=== PATIENT | male | born 1940 | race Caucasian/White ===

== ENCOUNTER → 2017-08-30 | Emergency (ER) | payer OTHER ==
[~2017-08-30] VITALS: Ht 175.3 cm; Wt 81.2 kg
== END | disposition left against medical advice (07) ==
LOC: ER 04:11
DX: S30.1XXA Contusion of abdominal wall, initial encounter (principal); S00.83XA Contusion of other part of head, initial encounter; Y08.89XA Assault by other specified means, initial encounter; Y93.89 Activity, other specified; Y92.488 Other paved roadways as the place of occurrence of the external cause; Y99.8 Other external cause status; F20.89 Other schizophrenia

== ENCOUNTER 2019-10-06 15:56 | Emergency (ER) | payer OTHER ==
[~2019-10-06] VITALS: Ht 172.7 cm; Wt 82.1 kg
[2019-10-06] MEDS ORDERED: SULFAMETHOXAZOLE-TMP (16:27)
== END 2019-10-06 18:23 | disposition home or self-care (01) ==
LOC: ER 15:56
DX: S20.222A Contusion of left back wall of thorax, initial encounter (principal); Y04.2XXA Assault by strike against or bumped into by another person, initial encounter; Y93.89 Activity, other specified; Y92.512 Supermarket, store or market as the place of occurrence of the external cause; Y99.8 Other external cause status

== ENCOUNTER 2019-10-12 16:14 | Emergency (ER) | payer OTHER ==
[~2019-10-12] VITALS: Ht 167.6 cm; Wt 81.6 kg
[~2019-10-12 16:14] MED LIST: SULFAMETHOXAZOLE-TMP
== END 2019-10-12 22:13 | disposition home or self-care (01) ==
LOC: ER 16:14
DX: S50.812A Abrasion of left forearm, initial encounter (principal); R55 Syncope and collapse; R42 Dizziness and giddiness; N39.0 Urinary tract infection, site not specified; W18.09XA Striking against other object with subsequent fall, initial encounter; Y93.89 Activity, other specified; Y92.018 Other place in single-family (private) house as the place of occurrence of the external cause; Y99.8 Other external cause status

== ENCOUNTER 2019-10-27 10:33 | Emergency (ER) | payer OTHER ==
[~2019-10-27] VITALS: Ht 182.9 cm; Wt 77.1 kg
[2019-10-28] MEDS ORDERED: CIPRO500 MG PO (10:56)
== END 2019-10-27 11:43 | disposition home or self-care (01) ==
LOC: ER 10:33
DX: S50.312A Abrasion of left elbow, initial encounter (principal); X58.XXXA Exposure to other specified factors, initial encounter; Y93.89 Activity, other specified; Y92.89 Other specified places as the place of occurrence of the external cause; Y99.8 Other external cause status

== ENCOUNTER 2019-10-28 08:52 | Emergency (ER) | payer OTHER ==
[~2019-10-28] VITALS: Ht 165.1 cm; Wt 77.1 kg
[2019-10-28] MEDS ORDERED: CIPRO500 MG PO (10:56)
== END 2019-10-28 11:49 | disposition home or self-care (01) ==
LOC: ER 08:52
DX: T83.018A Breakdown (mechanical) of other urinary catheter, initial encounter (principal)

== ENCOUNTER → 2019-10-29 | Emergency (ER) | payer OTHER ==
[~2019-10-29] VITALS: Ht 180.3 cm; Wt 99.8 kg
[~2019-10-29] MED LIST changes: +CIPRO500 MG PO
== END | disposition left against medical advice (07) ==
LOC: ER 01:00
DX: R33.8 Other retention of urine (principal)